=== PATIENT | male | born 1950 | race Caucasian/White ===

== ENCOUNTER 2021-12-08 22:37 | Emergency (ER) | payer OTHER, SELFPAY ==
[2021-12-08 22:48] VITALS: BP 159/99; PULSE 86; RESP 14; TEMP 36.9; O2SAT 100; O2SAT 99; BMI 27.3
--- NOTE | 2021-12-09 02:18 | ED.ALCOHOL ---
HPI - Alcohol General Chief Complaint: ETOH/Substance Use Stated Complaint: ETOH Time Seen by Provider: 12/09/21 02:02 Source: patient Mode of arrival: EMS Limitations: no limitations History of Present Illness HPI narrative: Patient brought by EMS as his brother called EMS as patient acting after drinking alcohol on arrival patient was calm and cooperative saying that he has lung cancer and need medication Related Data Allergies Allergy/AdvReac Type Severity Reaction Status Date / Time No Known Allergies Allergy Verified 12/09/21 03:04 Review of Systems Review of Systems: Yes all other systems are reviewed and are negative [facility] Social History Social History Advance Directives: No Advance Directives Information Provided: Yes Physical Exam ED Vital Signs: Vital Signs - 24 hr 12/08/21 22:48 12/09/21 05:06 Temperature 98.5 F Pulse Rate 86 86 Respiratory Rate 14 16 Blood Pressure 159/99 H 138/71 Pulse Oximetry 99 95 Oxygen Delivery Method Room Air Room Air BMI result Body Mass Index 27.3 Const Other: Appearance: Alert. Oriented X3. No acute distress. etoh+ Eyes: PERRLA, No Nystagmus ENT: Pharynx normal. Oral Mucosa moist Neck: Normal inspection. Neck supple. CVS: Normal heart rate and rhythm. Pulses normal. Respiratory: No respiratory distress. Equal air entry bilateral, no wheezing/rales/rhonchi Abdomen: Soft and nontender. Bowel sounds are present, no mass palpable, no CVA tenderness Skin: Skin warm and dry. Normal skin color. Normal skin turgor. Extremities: No lower extremity edema. No calf tenderness Neuro: Oriented X 3. No motor deficit. No sensory deficit.No cerebellar signs , cranial nerves II-XII intact MDM - Alcohol MDM Narrative Medical decision making narrative: Patient alert oriented x3 walking steady gait ETOH 69 and discharge patient home Lab Data Result diagrams: 12/09/21 04:18 12/09/21 04:18 Labs: Lab Results 12/09/21 12/09/21 12/09/21 Range/Units 04:18 04:18 04:18 WBC 7.3 (4.8-10.8) X10*3/uL RBC 3.73 L (4.60-5.80) X10*6/uL Hgb 12.0 L (14.0-18.0) g/dl Hct 34.7 L (42.0-52.0) % MCV 93.0 (80.0-98.0) fL MCH 32.2 (27.0-33.0) pg MCHC 34.6 (31.0-36.0) g/dl RDW 12.7 (11.0-16.0) % Plt Count 221 (160-400) X10*3/uL MPV 8.3 L (9.4-12.4) fL Immature Gran % (Auto) 0.3 (0.0-0.4) % Neut % (Auto) 65.1 (45-73) % Lymph % (Auto) 25.7 (20-40) % [place] % (Auto) 7.4 (2-11) % Eos % (Auto) 1.1 (0-4) % Baso % (Auto) 0.4 (0-2) % Lymph # (Auto) 1.9 (1.2-4.9) X10*3/uL [place] # (Auto) 0.5 (0.1-1.2) X10*3/uL Eos # (Auto) 0.1 (0.0-0.4) X10*3/uL Baso # (Auto) 0.0 (0.0-0.2) X10*3/uL Abs Immat Gran (auto) 0.02 (0.00-0.03) X10*3/uL Absolute Neuts (auto) 4.8 (2.0-8.3) x10*3/uL Absolute Nucleated RBC 0.000 (0.0-0.012) X10*3/uL Nucleated RBC % (auto) 0.0 (0.0-0.2) /100WBC PT 11.5 (10.0-13.1) SEC INR 1.0 (0.9-1.1) Sodium 132 L (135-145) mmol/L Potassium 4.5 (3.3-5.1) mmol/L Chloride 94 L (96-108) mmol/L Carbon Dioxide 25 (22-29) mmol/L Anion Gap 18 (12-20) BUN 6 L (9-16) mg/dL Creatinine 0.77 (0.5-1.4) mg/dL Estim Creat Clear Calc 83.8 Estimated GFR > 60 Random Glucose 94 (60-115) mg/dL Calcium 9.1 (8.4-10.2) mg/dL Magnesium 1.6 (1.6-2.6) mg/dL Total Bilirubin 0.5 (0.0-1.0) mg/dL AST 17 (5-37) U/L ALT < 6 (0-40) U/L Alkaline Phosphatase 59 (39-117) U/L Total Protein 7.2 (6.5-8.0) g/dL Albumin 4.1 (3.5-5.0) g/dL Lipase 12 (8-78) U/L Ethyl Alcohol 69 mg/dL COVID-19 ([facility]EL[facility]) (Negative) COVID-19 Clin Com 12/09/21 Range/Units 04:18 WBC (4.8-10.8) X10*3/uL RBC (4.60-5.80) X10*6/uL Hgb (14.0-18.0) g/dl Hct (42.0-52.0) % MCV (80.0-98.0) fL MCH (27.0-33.0) pg MCHC (31.0-36.0) g/dl RDW (11.0-16.0) % Plt Count (160-400) X10*3/uL MPV (9.4-12.4) fL Immature Gran % (Auto) (0.0-0.4) % Neut % (Auto) (45-73) % Lymph % (Auto) (20-40) % [place] % (Auto) (2-11) % Eos % (Auto) (0-4) % Baso % (Auto) (0-2) % Lymph # (Auto) (1.2-4.9) X10*3/uL [place] # (Auto) (0.1-1.2) X10*3/uL Eos # (Auto) (0.0-0.4) X10*3/uL Baso # (Auto) (0.0-0.2) X10*3/uL Abs Immat Gran (auto) (0.00-0.03) X10*3/uL Absolute Neuts (auto) (2.0-8.3) x10*3/uL Absolute Nucleated RBC (0.0-0.012) X10*3/uL Nucleated RBC % (auto) (0.0-0.2) /100WBC PT (10.0-13.1) SEC INR (0.9-1.1) Sodium (135-145) mmol/L Potassium (3.3-5.1) mmol/L Chloride (96-108) mmol/L Carbon Dioxide (22-29) mmol/L Anion Gap (12-20) BUN (9-16) mg/dL Creatinine (0.5-1.4) mg/dL Estim Creat Clear Calc Estimated GFR Random Glucose (60-115) mg/dL Calcium (8.4-10.2) mg/dL Magnesium (1.6-2.6) mg/dL Total Bilirubin (0.0-1.0) mg/dL AST (5-37) U/L ALT (0-40) U/L Alkaline Phosphatase (39-117) U/L Total Protein (6.5-8.0) g/dL Albumin (3.5-5.0) g/dL Lipase (8-78) U/L Ethyl Alcohol mg/dL COVID-19 ([facility]ELITA) Negative (Negative) COVID-19 Clin Com See Note Discharge Plan Discharge Clinical Impression: Alcoholism Patient Disposition: Home, Self-Care Instructions: Abuse of Alcohol (ED) Additional Instructions: Rest at home follow up with detox as needed Interventions: ED Discharge Assessment Last Done: 12/09/21 05:18 Discharge Date/Time: 12/09/21 05:19
[2021-12-09 04:24] LABS: Basophils Percent Auto 0.4 % (0-2); Eosinophils Absolute Auto 0.1 X10*3/uL (0.0-0.4); Eosinophils Percent Auto 1.1 % (0-4); Hematocrit 34.7 % (42.0-52.0); Imm Gran Abs Auto 0.02 X10*3/uL (0.00-0.03); Imm Gran Pct Auto 0.3 % (0.0-0.4); Lymphocytes Absolute Auto 1.9 X10*3/uL (1.2-4.9); Lymphocytes Percent Auto 25.7 % (20-40); MANUAL DIFF FLAG NO; Mean Corpuscular HGB Conc 34.6 g/dl (31.0-36.0); Mean Corpuscular Hemoglobin 32.2 pg (27.0-33.0); Mean Platelet Volume 8.3 fL (9.4-12.4); Monocytes Absolute Auto 0.5 X10*3/uL (0.1-1.2); Monocytes Percent Auto 7.4 % (2-11); Neutrophils Absolute Auto 4.8 x10*3/uL (2.0-8.3); Neutrophils Percent Auto 65.1 % (45-73); Platelet Count 221 X10*3/uL (160-400); Red Blood Count 3.73 X10*6/uL (4.60-5.80); Red Cell Distribution Width 12.7 % (11.0-16.0); White Blood Count 7.3 X10*3/uL (4.8-10.8)
[2021-12-09] MEDS: 0.9 % Sodium Chloride 1,000 ML 999 ML IV (04:24)
[2021-12-09 04:30] LABS: Prothrombin Time 11.5 SEC (10.0-13.1)
[2021-12-09 04:39] LABS: COVID-19 Test Negative (Negative)
[2021-12-09 04:51] LABS: Alanine Aminotransferase < 6 U/L (0-40); Albumin Level 4.1 g/dL (3.5-5.0); Alkaline Phosphatase 59 U/L (39-117); Anion Gap 18 (12-20); Aspartate Amino Transferase 17 U/L (5-37); Bilirubin Total 0.5 mg/dL (0.0-1.0); Blood Urea Nitrogen 6 mg/dL (9-16); Calcium 9.1 mg/dL (8.4-10.2); Carbon Dioxide 25 mmol/L (22-29); Chloride 94 mmol/L (96-108); Creatinine Clr Calc Pharmacy 83.8; Estimated Glomerular Filt Rate > 60; Ethanol 69 mg/dL; Glucose Random 94 mg/dL (60-115); Lipase 12 U/L (8-78); Magnesium 1.6 mg/dL (1.6-2.6); Potassium 4.5 mmol/L (3.3-5.1); Sodium 132 mmol/L (135-145); Total Protein 7.2 g/dL (6.5-8.0)
[2021-12-09 05:06] VITALS: BP 138/71; PULSE 86; RESP 16; O2SAT 95
== END 2021-12-09 05:19 | disposition home or self-care (01) ==
PROVIDERS: Emergency Provider Internal Medicine
DX: F10.129 Alcohol abuse with intoxication, unspecified (principal); Y90.3 Blood alcohol level of 60-79 mg/100 ml; Z20.822 Contact with and (suspected) exposure to COVID-19; Z79.899 Other long term (current) drug therapy
CPT/HCPCS: 80053; 82077; 83690; 83735; 85025; 85610; 87635; 99283; 99284